=== PATIENT | female | born 1950 | race Caucasian/White ===

== ENCOUNTER → 2016-10-31 | Outpatient (CLI) | payer MEDICARE, OTHER ==
[~2016-10-31] MED LIST: CALC600T12 PO; CEPH-137 PO; CITA-51 PO; CYCL-83 PO; HYDR-1372 PO; LEVO100T85 PO; LORA10TA7 PO; LOSA25TA34 PO; LOVA20TA71 PO; MOME17SP7 NS; NAPR220C11 PO; OMEP-29 PO
== END ==
LOC: WC.BC 15:48
DX: Z12.31 Encounter for screening mammogram for malignant neoplasm of breast (principal)
CPT/HCPCS: 77063; G0202